=== PATIENT | male | born 1930 | race Caucasian/White ===

== ENCOUNTER 2018-10-20 09:31 | Emergency (ER) | payer MEDICARE, OTHER ==
[~2018-10-20] VITALS: Ht 172.7 cm; Wt 73.9 kg
[2018-10-20] MEDS ORDERED: NS IV 1000 ML 1,000 ML IV SCH ×2 (10:27→11:32)
[2018-10-20] MEDS ORDERED: ASPIRIN 81 MG CHEW (CHILDREN'S ASA) PO ONE (10:30)
[2018-10-20] MEDS ORDERED: NITROGLYCERIN 0.4 MG SL TABS BTL 25'S SL PRN (10:30)
[2018-10-20 10:33] LABS: BASOPHILS % (AUTO) 0 % (0-10); EOSINOPHILS % (AUTO) 0 % (0-10); HEMATOCRIT 51 % (40-54); HEMOGLOBIN 17.2 G/DL (13.3-17.7); LYMPHOCYTES # (AUTO) 1.8 X 10^3 (1.0-4.0); LYMPHOCYTES % (AUTO) 17 % (12-44); MEAN CORPUSCULAR HEMOGLOBIN 31 PG (25-34); MEAN CORPUSCULAR HGB CONC 34 G/DL (32-36); MEAN CORPUSCULAR VOLUME 93 FL (80-99); MEAN PLATELET VOLUME 9.4 FL (7.4-10.4); MONOCYTES # (AUTO) 0.8 X 10^3 (0.0-1.0); MONOCYTES % (AUTO) 8 % (0-12); NEUTROPHILS # (AUTO) 7.8 X 10^3 (1.8-7.8); NEUTROPHILS % (AUTO) 75 % (42-75); PLATELET COUNT 222 10^3/uL (130-400); RED CELL DISTRIBUTION WIDTH 13.3 % (10.0-14.5); WHITE BLOOD COUNT 10.4 10^3/uL (4.3-11.0)
--- NOTE | 2018-10-20 10:35 | ED Abdominal Pain ---
General Chief Complaint: Abdominal/GI Problems Stated Complaint: ABD PAIN Source of Information: Patient, Spouse Exam Limitations: No Limitations (JOHN MATHIAS) History of Present Illness Date Seen by Provider: October 20, 2018 Time Seen by Provider: 10:17 Initial Comments The patient presents to ER by private conveyance with his with chief complaint of about 3 weeks progressively worsening epigastric abdominal pain. The past couple days she's now been experiencing some pain in the back of his left arm described as soreness and shortness of breath. He was started on some kind of medication that is not sure what was as well as some sucralfate by [facility] but didn't tolerate either one of those so is not taking them. He says while at rest pain is not too bad about 4/10. He has a history of one stent about 7 years ago. Does not follow with cardiology anymore. The stent was placed in [place]. He denies any chest pain. He is not having any nausea presently. He does have a history of hiatal hernia and the plan was to go get a EGD done Thursday but he says having too much discomfort to wait that long. 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 He was told by the surgeon that there was nothing further to do surgically for his back pain. He has tried multiple antacids but does not take any routine daily acid reducers. He sees no relief with the antacids. He has a history of AAA status post repair and has been noting some constipation recently. His thinks is because of the fentanyl patch but he is not using any laxatives. No numbness tingling weakness and lower extremities. (JOHN MATHIAS) Allergies and Home Medications Allergies Coded Allergies: No Known Drug Allergies (Unverified , 10/20/18) Home Medications Fentanyl 1 Each Patch.td72, 50 MCG TD Q72H, (Reported) Patient Home Medication List Home Medication List Reviewed: Yes (JOHN MATHIAS) Review of Systems Review of Systems Constitutional: No chills, No diaphoresis EENTM: No Blurred Vision, No Double Vision Respiratory: Denies Cough, Denies Shortness of Air Cardiovascular: See HPI, Chest Pain; Denies Edema Gastrointestinal: See HPI, Abdomen Distended, Abdominal Pain; Denies Constipated, Denies Diarrhea, Denies Nausea Genitourinary: Denies Burning, Denies Discharge, Denies Drainage Musculoskeletal: back pain; No joint pain Psychiatric/Neurological: Denies Anxiety, Denies Depressed (JOHN MATHIAS) Past Pfrpvaj-Wfwpeo-Fpmxzg Hx Patient Social History Alcohol Use: Rarely Uses Recreational Drug Use: No Smoking Status: Never a Smoker Recent Hopitalizations: No Physical Abuse: No Sexual Abuse: No Mistreated: No Fear: No (JOHN MATHIAS) Past Medical History Surgeries: Yes (AORTIC ANEURYSM REPAIR, BACK SX) Coronary Stent Respiratory: No Cardiac: Yes Coronary Artery Disease, Heart Attack, High Cholesterol, Hypertension Neurological: No Genitourinary: No Gastrointestinal: Yes Gastroesophageal Reflux, Hiatal Hernia Musculoskeletal: Yes Chronic Back Pain Endocrine: No HEENT: No Cancer: No Psychosocial: No (JOHN MATHIAS) Physical Exam Vital Signs Vital Signs - First Documented 10/20/18 10:12 Temp 97.4 Pulse 99 Resp 20 B/P (MAP) 152/102 (119) Pulse Ox 95 (YOEL SENIOR LEACH RUNNER) Vital Signs Capillary Refill : (JOHN MATHIAS) Height/Weight/BMI Height: '" Weight: lbs. oz. kg; BMI Method: General Appearance: WD/WN, no apparent distress HEENT: PERRL/EOMI, pharynx normal Neck: full range of motion, supple, normal inspection Respiratory: chest non-tender, lungs clear, normal breath sounds, no respiratory distress, no accessory muscle use Cardiovascular: normal peripheral pulses, regular rate, rhythm, other (trace pedal edema bilaterally) Peripheral Pulses: 2+ Dorsalis Pedis (R), 2+ Left Dors-Pedis (L) Gastrointestinal: normal bowel sounds (.), no organomegaly, tenderness ( epigastric) Extremities: normal range of motion, non-tender, normal capillary refill Neurologic/Psychiatric: alert, normal mood/affect, oriented x 3 Skin: normal color, warm/dry (JOHN MATHIAS) Progress/Results/Core Measures Results/Orders Lab Results Laboratory Tests Test 10/20/18 10:21 10/20/18 12:57 Range/Units White Blood Count 10.4 4.3-11.0 10^3/uL Red Blood Count 5.51 4.35-5.85 10^6/uL Hemoglobin 17.2 13.3-17.7 G/DL Hematocrit 51 40-54 % Mean Corpuscular Volume 93 80-99 FL Mean Corpuscular Hemoglobin 31 25-34 PG Mean Corpuscular Hemoglobin Concent 34 32-36 G/DL Red Cell Distribution Width 13.3 10.0-14.5 % Platelet Count 222 130-400 10^3/uL Mean Platelet Volume 9.4 7.4-10.4 FL Neutrophils (%) (Auto) 75 42-75 % Lymphocytes (%) (Auto) 17 12-44 % Monocytes (%) (Auto) 8 0-12 % Eosinophils (%) (Auto) 0 0-10 % Basophils (%) (Auto) 0 0-10 % Neutrophils # (Auto) 7.8 1.8-7.8 X 10^3 Lymphocytes # (Auto) 1.8 1.0-4.0 X 10^3 Monocytes # (Auto) 0.8 0.0-1.0 X 10^3 Eosinophils # (Auto) 0.0 0.0-0.3 10^3/uL Basophils # (Auto) 0.0 0.0-0.1 10^3/uL Prothrombin Time 13.6 12.2-14.7 SEC INR Comment 1.0 0.8-1.4 Activated Partial Thromboplast Time 30 24-35 SEC Sodium Level 141 135-145 MMOL/L Potassium Level 3.5 L 3.6-5.0 MMOL/L Chloride Level 102 98-107 MMOL/L Carbon Dioxide Level 28 21-32 MMOL/L Anion Gap 11 5-14 MMOL/L Blood Urea Nitrogen 18 7-18 MG/DL Creatinine 0.89 0.60-1.30 MG/DL Estimat Glomerular Filtration Rate > 60 BUN/Creatinine Ratio 20 Glucose Level 104 70-105 MG/DL Calcium Level 10.6 H 8.5-10.1 MG/DL Corrected Calcium 10.4 H 8.5-10.1 MG/DL Magnesium Level 2.2 1.8-2.4 MG/DL Total Bilirubin 1.8 H 0.1-1.0 MG/DL Aspartate Amino Transf (AST/SGOT) 20 5-34 U/L Alanine Aminotransferase (ALT/SGPT) 18 0-55 U/L Alkaline Phosphatase 64 40-136 U/L Myoglobin 75.0 10.0-92.0 NG/ML Troponin I < 0.028 <0.028 NG/ML C-Reactive Protein High Sensitivity 2.43 H 0.00-0.50 MG/DL Total Protein 8.2 6.4-8.2 GM/DL Albumin 4.2 3.2-4.5 GM/DL Lipase 9 8-78 U/L (YOEL SENIOR APRN) Medications Given in ED Current Medications Medications Dose Ordered Sig/Byron Route Start Time Stop Time Status Last Admin Dose Admin Al Hydrox/Mg Hydrox/Simethicone 30 ml ONCE ONCE PO 10/20/18 11:45 10/20/18 11:47 DC 10/20/18 11:51 30 ML Aspirin 324 mg ONCE ONCE PO 10/20/18 10:30 10/20/18 10:31 DC 10/20/18 10:36 324 MG Lidocaine HCl 15 ml ONCE ONCE PO 10/20/18 11:45 10/20/18 11:47 DC 10/20/18 11:51 15 ML Nitroglycerin 0.4 mg UD PRN SL 10/20/18 10:30 10/20/18 10:36 0.4 MG (YOEL SENIOR APRN) Vital Signs/I&O 10/20/18 10:12 Temp 97.4 Pulse 99 Resp 20 B/P (MAP) 152/102 (119) Pulse Ox 95 (YOEL SENIOR APRN) Progress Progress Note #1: Time: 10:33 Progress Note Differential includes pancreatitis, gastritis, peptic ulcer, atypical anginal pain. Initial EKG I do not have anything it to previously. We'll going give him some aspirin and Tylenol nitroglycerin. Plan to give him some IV fluids as his heart rate is elevated in the 90s. If the nitroglycerin does not help then we may try a GI cocktail next. He does have a history of AAA status post repair. A CT with contrast of the abdomen and pelvis would be very beneficial. He's had some constipation lately which is likely due to the fentanyl patch but could also indicate some kind of obstruction. ED ACS 25 points. Not low risk. This patient is not a candidate for early discharge and should receive a standard chest pain evaluation with delayed troponin testing. Progress Note #2: Time: 11:38 Progress Note Nitroglycerin did not seem to help his pain is still 4 out of 10. We will try a GI cocktail. We did discuss doing a CT abdomen and pelvis with contrast and the patient has consented to do this. Patient never had any actual chest pain so we' ll do a little troponin since is pains been worsening for the past 2-3 days and if it still negative then I think the next step for him would be to get the planned EGD done outpatient. Progress Note #3: Time: 13:32 Progress Note The patient is comfortable, sleeping. We have obtained a ESR and CRP which are not remarkable. We have briefly discussed with cardiology and they recommend the patient will need CT surgery to follow. The patient would prefer to go to [facility] so we will start looking for transfer there. (JOHN MATHIAS) Initial ECG Impression Date: October 20, 2018 Initial ECG Impression Time: 10:19 Initial ECG Rate: 94 Initial ECG Intervals: QT (491) Initial ECG Impression: Nonspecific Changes Initial ECG Comparisson: No Previous ECG Available Comment Right bundle-branch block without significant ST elevation or depression. (JOHN MATHIAS) Diagnostic Imaging Diagonstic Imaging: Xray Plain Films/CT/US/NM/MRI: chest (1v) Comments [facility] [place], [place] NAME: CONI VELAZQUEZ [facility] REC#: [id number] PT STATUS: REG ER : 1930 PHYSICIAN: JOHN MATHIAS MD ADMIT DATE: 10/20/18/ER Draft Date of Exam:10/20/18 CHEST 1 VIEW, AP/PA ONLY INDICATION: Abdominal pain. TIME OF EXAMINATION: 11:00 AM. COMPARISON: No prior studies are available for comparison. FINDINGS: The heart size is normal. There are interstitial changes in the peripheral aspects of both lungs, likely owing to fibrotic scarring. No effusion or pneumothorax is seen. IMPRESSION: Interstitial changes bilaterally, likely on a chronic basis. No other significant abnormality is seen. Dictated on workstation # [id number] Dict: 10/20/18 1115 Trans: 10/20/18 1117 [id number] Interpreted by: HERNAN AVINA MD Electronically signed by: Reviewed: Reviewed by Me Diagonstic Imaging: CT (with contrast) Plain Films/CT/US/NM/MRI: abdomen, pelvis Comments [facility] [place] [place] NAME: CONI VELAZQUEZ [facility] REC#: [id number] PT STATUS: REG ER : 1930 PHYSICIAN: JOHN MATHIAS MD ADMIT DATE: 10/20/18/ER Draft Date of Exam:10/20/18 CT ABDOMEN/PELVIS W PROCEDURE: CT abdomen and pelvis with contrast. TECHNIQUE: Multiple contiguous axial images were obtained through the abdomen and pelvis after administration of intravenous contrast. Auto Exposure Controls were utilized during the CT exam to meet ALARA standards for radiation dose reduction. INDICATION: History of abdominal aortic aneurysm repair and prostate cancer. Epigastric pain radiating to the back and left arm for 3 weeks. COMPARISON: None FINDINGS: There is motion artifact on multiple images. There are reticular opacities and groundglass opacities in the lung bases, which have the appearance of fibrosis. No pleural effusion is seen. The heart is normal in size. There is no pericardial effusion. There is enlargement of the pulmonary arteries. The liver demonstrates no focal lesions. The spleen appears normal. The pancreas is unremarkable. The adrenal glands appear normal. There is a simple appearing 3 cm cyst in the posterior right kidney. There is no hydronephrosis or renal mass is seen. There is tortuosity of the aorta, particularly in the thorax. There is moderate to marked atherosclerosis, with approximately 30% narrowing of the aorta just below the renal arteries. There is mild ectasia of the distal aorta, measuring up to 2.8 x 2.7 cm distally. There is mild fat stranding about the aorta (image 51 series 3). No contrast extravasation is seen. 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 There is a moderate-sized hiatal hernia. No bowel loops are distended to indicate obstruction. The appendix is normal. There is moderate stool throughout the colon. No free fluid or free air is seen. There is a fat-containing ventral hernia just to the right of midline above the umbilicus, which contains internal fat stranding. No acute osseous abnormality is seen. There are severe degenerative changes in the lumbar spine, with left convex curvature centered at L2. Brachytherapy seeds are noted in the prostate bed. IMPRESSION: 1. Mildly ectatic distal aorta. There is periaortic fat stranding, which is concerning as a sign of potential impending rupture, and can also be seen with aortitis. No contrast extravasation is seen. 2. Reticular and ground glass opacities in the lung bases, with the appearance of fibrosis. Enlargement of the pulmonary arteries can be seen with pulmonary hypertension. 3. Moderate size hiatal hernia. 4. Fat containing right ventral hernia with internal fat stranding which may be due to strangulation. No bowel involvement is seen. Findings discussed with Peter in the ER by Dr. Gamino, on 10/20/2018 12:47 PM Dictated on workstation # [id number] Dict: 10/20/18 1226 Trans: 10/20/18 1256 [id number] Interpreted by: JOHANA GAMINO MD Electronically signed by: Reviewed: Reviewed by Me (JOHN MATHIAS) Comments NAME: CONI VELAZQUEZ [facility] REC#: [id number] PT STATUS: REG ER : 1930 PHYSICIAN: JOHN MATHIAS MD ADMIT DATE: 10/20/18/ER Draft Date of Exam:10/20/18 CT ABDOMEN/PELVIS W PROCEDURE: CT abdomen and pelvis with contrast. TECHNIQUE: Multiple contiguous axial images were obtained through the abdomen and pelvis after administration of intravenous contrast. Auto Exposure Controls were utilized during the CT exam to meet ALARA standards for radiation dose reduction. INDICATION: History of abdominal aortic aneurysm repair and prostate cancer. Epigastric pain radiating to the back and left arm for 3 weeks. COMPARISON: None FINDINGS: There is motion artifact on multiple images. There are reticular opacities and groundglass opacities in the lung bases, which have the appearance of fibrosis. No pleural effusion is seen. The heart is normal in size. There is no pericardial effusion. There is enlargement of the pulmonary arteries. The liver demonstrates no focal lesions. The spleen appears normal. The pancreas is unremarkable. The adrenal glands appear normal. There is a simple appearing 3 cm cyst in the posterior right kidney. There is no hydronephrosis or renal mass is seen. There is tortuosity of the aorta, particularly in the thorax. There is moderate to marked atherosclerosis, with approximately 30% narrowing of the aorta just below the renal arteries. There is mild ectasia of the distal aorta, measuring up to 2.8 x 2.7 cm distally. There is mild fat stranding about the aorta (image 51 series 3). No contrast extravasation is seen. 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 There is a moderate-sized hiatal hernia. No bowel loops are distended to indicate obstruction. The appendix is normal. There is moderate stool throughout the colon. No free fluid or free air is seen. There is a fat-containing ventral hernia just to the right of midline above the umbilicus, which contains internal fat stranding. No acute osseous abnormality is seen. There are severe degenerative changes in the lumbar spine, with left convex curvature centered at L2. Brachytherapy seeds are noted in the prostate bed. IMPRESSION: 1. Mildly ectatic distal aorta. There is periaortic fat stranding, which is concerning as a sign of potential impending rupture, and can also be seen with aortitis. No contrast extravasation is seen. 2. Reticular and ground glass opacities in the lung bases, with the appearance of fibrosis. Enlargement of the pulmonary arteries can be seen with pulmonary hypertension. 3. Moderate size hiatal hernia. 4. Fat containing right ventral hernia with internal fat stranding which may be due to strangulation. No bowel involvement is seen. Findings discussed with Yoel in the ER by Dr. Gamino, on 10/20/2018 12:47 PM Dictated on workstation # [id number] Dict: 10/20/18 1226 Trans: 10/20/18 1256 [id number] Interpreted by: JOHANA GAMINO MD Electronically signed by: (YOEL SENIOR APRN) Departure Impression Primary Impression: Aortitis Additional Impression: Ventral hernia Qualified Codes: K43.9 - Ventral hernia without obstruction or gangrene Disposition: 02 XFER SHT-TRM HOSP Condition: Stable Transfer Time Spoke to Accepting Phy: 01:50 Transfer Progress Notes Called [facility] [place] and they will call us back with a CT/CV surgeon. 0140: Dr Torres CT Surgery: He would recommend we send the patient to his care and he would start vancomycin get blood cultures and he would like a copy of a disc of the CT abdomen pelvis. 0150: Spoke to Dr. Rinaldi and he accepts the patient for internal medicine. He will be admitted to Dr. Mao. Transfer Time: 16:15 Transfer Facility: [place], [place]. Method of Transfer: EMS (JOHN MATHIAS) JOHN MATHIAS October 20, 2018 10:35 YOEL SENIOR APRN October 20, 2018 13:11
[2018-10-20 10:37] LABS: PROTHROMBIN TIME PATIENT 13.6 SEC (12.2-14.7)
[2018-10-20 10:46] LABS: ALANINE AMINOTRANSFERASE 18 U/L (0-55); ALBUMIN 4.2 GM/DL (3.2-4.5); ALKALINE PHOSPHATASE 64 U/L (40-136); BILIRUBIN,TOTAL 1.8 MG/DL (0.1-1.0); BUN/CREATININE RATIO 20; CALCIUM 10.6 MG/DL (8.5-10.1); CARBON DIOXIDE 28 MMOL/L (21-32); CHLORIDE 102 MMOL/L (98-107); CREATININE SERUM 0.89 MG/DL (0.60-1.30); GFR ESTIMATED > 60; GLUCOSE 104 MG/DL (70-105); LIPASE 9 U/L (8-78); MAGNESIUM 2.2 MG/DL (1.8-2.4); POTASSIUM 3.5 MMOL/L (3.6-5.0); SODIUM 141 MMOL/L (135-145); TOTAL PROTEIN 8.2 GM/DL (6.4-8.2)
--- NOTE | 2018-10-20 11:17 | Diagnostic Imaging Report ---
INDICATION: Abdominal pain. TIME OF EXAMINATION: 11:00 AM. COMPARISON: No prior studies are available for comparison. FINDINGS: The heart size is normal. There are interstitial changes in the peripheral aspects of both lungs, likely owing to fibrotic scarring. No effusion or pneumothorax is seen. IMPRESSION: Interstitial changes bilaterally, likely on a chronic basis. No other significant abnormality is seen. Dictated by: Dictated on workstation # [id number]
[2018-10-20] MEDS ORDERED: FENT1PAT9 TD (11:28)
[2018-10-20] MEDS ORDERED: TRAM-42 PO (11:28)
[2018-10-20] MEDS ORDERED: CETI10CA PO (11:28)
[2018-10-20] MEDS ORDERED: POTA20TA8 PO (11:28)
[2018-10-20] MEDS ORDERED: MULT-1029 PO (11:28)
[2018-10-20] MEDS ORDERED: FAMOTIDINE 20 MG (PEPCID) TABLET PO STA (11:38)
[2018-10-20] MEDS ORDERED: ANTACID SUSP 30 ML UDC (MYLANTA) PO ONE (11:45)
[2018-10-20] MEDS ORDERED: IOHEXOL 350 MG/ML 100 ML (OMNIPAQUE 350) VIAL IV ONE (11:45)
[2018-10-20] MEDS ORDERED: LIDOCAINE 2% VISCOUS 15 ML UDC PO ONE (11:45)
[2018-10-20] MEDS ORDERED: HOLD METFORMIN - RECEIVED CONTRAST 20 ML VIAL IV SCH (11:45)
--- NOTE | 2018-10-20 12:57 | Diagnostic Imaging Report ---
PROCEDURE: CT abdomen and pelvis with contrast. TECHNIQUE: Multiple contiguous axial images were obtained through the abdomen and pelvis after administration of intravenous contrast. Auto Exposure Controls were utilized during the CT exam to meet ALARA standards for radiation dose reduction. INDICATION: History of abdominal aortic aneurysm repair and prostate cancer. Epigastric pain radiating to the back and left arm for 3 weeks. COMPARISON: None FINDINGS: There is motion artifact on multiple images. There are reticular opacities and groundglass opacities in the lung bases, which have the appearance of fibrosis. No pleural effusion is seen. The heart is normal in size. There is no pericardial effusion. There is enlargement of the pulmonary arteries. The liver demonstrates no focal lesions. The spleen appears normal. The pancreas is unremarkable. The adrenal glands appear normal. There is a simple appearing 3 cm cyst in the posterior right kidney. There is no hydronephrosis or renal mass is seen. There is tortuosity of the aorta, particularly in the thorax. There is moderate to marked atherosclerosis, with approximately 30% narrowing of the aorta just below the renal arteries. There is mild ectasia of the distal aorta, measuring up to 2.8 x 2.7 cm distally. There is mild fat stranding about the aorta (image 51 series 3). No contrast extravasation is seen. 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 There is a moderate-sized hiatal hernia. No bowel loops are distended to indicate obstruction. The appendix is normal. There is moderate stool throughout the colon. No free fluid or free air is seen. There is a fat-containing ventral hernia just to the right of midline above the umbilicus, which contains internal fat stranding. No acute osseous abnormality is seen. There are severe degenerative changes in the lumbar spine, with left convex curvature centered at L2. Brachytherapy seeds are noted in the prostate bed. IMPRESSION: 1. Mildly ectatic distal aorta. There is periaortic fat stranding, which is concerning as a sign of potential impending rupture, and can also be seen with aortitis. No contrast extravasation is seen. 2. Reticular and ground glass opacities in the lung bases, with the appearance of fibrosis. Enlargement of the pulmonary arteries can be seen with pulmonary hypertension. 3. Moderate size hiatal hernia. 4. Fat containing right ventral hernia with internal fat stranding which may be due to strangulation. No bowel involvement is seen. Findings discussed with Alan in the ER by Dr. Ward, on 10/20/2018 12:47 PM Dictated by: Dictated on workstation # [id number]
[2018-10-20] MEDS ORDERED: VANCOMYCIN INJECTION 1,000 MG in NS (IVPB) 250 ML IV ONE (14:15)
[2018-10-20 16:13] VITALS: BP 142/77
== END 2018-10-20 16:13 | disposition short-term general hospital (02) ==
LOC: ER 09:32
DX: I77.6 Arteritis, unspecified (principal); K43.9 Ventral hernia without obstruction or gangrene; I25.10 Atherosclerotic heart disease of native coronary artery without angina pectoris; E78.00 Pure hypercholesterolemia, unspecified; I10 Essential (primary) hypertension; K21.9 Gastro-esophageal reflux disease without esophagitis; I25.2 Old myocardial infarction; Z95.5 Presence of coronary angioplasty implant and graft
CPT/HCPCS: 36415; 71045; 74177; 80053; 83605; 83690; 83735; 83874; 84484; 85025; 85610; 85652; 85730; 86141; 87040; 93005; 93041; 96361; 96374